=== PATIENT | female | born 1970 | race Caucasian/White ===

== ENCOUNTER 2020-03-23 16:57 | Emergency (ER) | payer OTHER ==
[2020-03-23] MEDS ORDERED: CLINDAMYCIN HCL CAP 150 MG CAP PO ONE (17:26)
[2020-03-23] MEDS ORDERED: TETANUS,DIPHTHERIA,PERTUSSIS 1 EA SYG IM ONE (17:26)
--- NOTE | 2020-03-23 17:33 | ED.PDOC ---
History of Present Illness - General Chief Complaint: Laceration Stated Complaint: R index finger laceration Time Seen by Provider: 03/23/20 17:00 Source: patient Exam Limitations: no limitations - History of Present Illness Initial Comments: The patient is a 49-year-old female presented emergency room secondary to sustaining a laceration approximately 7 hours prior to arrival to the right index finger along the ulnar aspect of the tip alongside the nail bed. It made a V-shaped laceration approximately 1.5 cm in total length. The patient was not going to come in however the laceration kept bleeding. No other injury. The laceration is due to a glass fragment from a kitchen appliance. She is unsure of her last tetanus. Timing/Duration: 4-6 hours Severity: mild Improving Factors: nothing Worsening Factors: nothing Associated Symptoms: denies symptoms Home Medications: Ambulatory Orders Clindamycin HCl 300 mg PO BID #6 cap 03/23/20 Lisinopril 10 mg PO DAILY 03/23/20 Review of Systems - Review of Systems Constitutional: States: no symptoms reported EENTM: States: no symptoms reported Respiratory: States: no symptoms reported Cardiology: States: no symptoms reported Gastrointestinal/Abdominal: States: no symptoms reported Genitourinary: States: no symptoms reported Musculoskeletal: States: no symptoms reported Skin: States: see HPI Neurological: States: no symptoms reported Endocrine: States: no symptoms reported All other Systems: No Change from Baseline Physical Exam - Physical Exam General Appearance: Alert, Comfortable, No apparent distress Eye Exam: bilateral normal Ears, Nose, Throat: hearing grossly normal Neck: full range of motion Respiratory: no respiratory distress, no accessory muscle use Cardiovascular/Chest: normal peripheral pulses, no edema Peripheral Pulses: radial,right: 2+, radial,left: 2+ Rectal Exam: deferred Extremity: normal range of motion, no pedal edema, normal capillary refill Neurologic: cloth finishing range tender II-XII nml as tested, alert, normal mood/affect, oriented x 3 Skin Exam: normal color - Laceration as per history of present illness. Progress - Progress Progress: 03/23/20 17:31 The patient is a 49-year-old female presented emergency room secondary to a laceration to her right index finger due to a glass fragment. The wound was irrigated with water and then cleaned with hydrogen peroxide. The wound was repaired with 3 simple sutures of 4-0 Ethilon. She can keep a Band-Aid and triple antibiotic ointment on it to improve healing. She can wash it twice daily with an antibacterial soap and water. Monitor for any evidence of infection. She will be written for 3 days of clindamycin for prophylactic purposes. Sutures can come out in 7 to 10 days. ER warnings are given. Risk and benefits of repair were explained and patient agrees to proceed. Wounds irrigated with water and then cleaned with hydrogen peroxide. 3 simple sutures of 4-0 Ethilon were placed for reapproximation and hemostasis. Patient tolerated this well. Estimated blood loss in total was 7 cc. [email or web address] [email or web address] [id number] Departure - Departure Clinical Impression: Finger laceration Qualifiers: Encounter type: initial encounter Finger: index finger Damage to nail status: without damage Foreign body presence: without foreign body Laterality: right Qualified Code(s): S61.210A - Laceration without foreign body of right index finger without damage to nail, initial encounter Disposition: Discharge to Home or Self Care Condition: Fair Departure Forms: ED Discharge - Pt. Copy, Patient Portal Self Enrollment Instructions: DI for Laceration Repair, DI for Laceration Repair -- Simple Diet: regular diet Activity: increase activity as tolerated Prescriptions: Clindamycin HCl 300 mg PO BID #6 cap Home Medications: Ambulatory Orders Clindamycin HCl 300 mg PO BID #6 cap 03/23/20 Lisinopril 10 mg PO DAILY 03/23/20 Additional Instructions: The patient is a 49-year-old female presented emergency room secondary to a laceration to her right index finger due to a glass fragment. The wound was irrigated with water and then cleaned with hydrogen peroxide. The wound was repaired with 3 simple sutures of 4-0 Ethilon. She can keep a Band-Aid and triple antibiotic ointment on it to improve healing. She can wash it twice daily with an antibacterial soap and water. Monitor for any evidence of infection. She will be written for 3 days of clindamycin for prophylactic purposes. Sutures can come out in 7 to 10 days. ER warnings are given.
[2020-03-23 17:36] VITALS: BP 150/102; TEMP 97.3; O2SAT 96
[2020-03-23] MEDS ORDERED: NEOMYCIN-BACITRACIN-POLYMYXIN 0.9 GM UD TOP ONE (17:46)
== END 2020-03-23 17:51 | disposition home or self-care (01) ==
LOC: ER 16:57
DX: S61.210A Laceration without foreign body of right index finger without damage to nail, initial encounter (principal); Z79.899 Other long term (current) drug therapy; W25.XXXA Contact with sharp glass, initial encounter; Y92.9 Unspecified place or not applicable